=== PATIENT | male | born 1940 | race Hispanic/Latino ===

== ENCOUNTER 2018-10-12 07:45 | Inpatient (IN) | payer OTHER | END 2018-10-17 17:30 | disposition home or self-care (01) | LOC: EDH 07:45 → EDHIP 10:10 → 3CH 15:25 → 2DH 20:35 | PROC: 0DTJ4ZZ Resection of Appendix, Percutaneous Endoscopic Approach (ICD-10-PCS; principal; 2018-10-12 13:16) | DX: A41.9 Sepsis, unspecified organism (principal); K35.80 Unspecified acute appendicitis; K57.32 Diverticulitis of large intestine without perforation or abscess without bleeding; I88.0 Nonspecific mesenteric lymphadenitis; I48.2 Chronic atrial fibrillation; F10.10 Alcohol abuse, uncomplicated ==

== ENCOUNTER 2018-10-20 09:31 | Inpatient (IN) | payer OTHER | END 2018-10-24 18:20 | disposition home or self-care (01) | LOC: EDH 09:31 → EDHIP 16:36 → 3CH 19:42 | DX: K56.600 Partial intestinal obstruction, unspecified as to cause (principal); I48.2 Chronic atrial fibrillation ==

== ENCOUNTER 2018-11-17 10:01 | Emergency (ER) | payer OTHER ==
[~2018-11-17 10:01] MED LIST: LEVO750T46 PO; METO25 PO; TRAM50TA4 PO
== END 2018-11-17 12:19 | disposition home or self-care (01) ==
LOC: EDH 10:01
DX: I82.612 Acute embolism and thrombosis of superficial veins of left upper extremity (principal); I48.91 Unspecified atrial fibrillation; I10 Essential (primary) hypertension; Z90.49 Acquired absence of other specified parts of digestive tract; Z87.891 Personal history of nicotine dependence
CPT/HCPCS: 93971